=== PATIENT | male | born 2000 ===

== ENCOUNTER 2024-12-21 11:09 | Emergency (ER) | payer MEDICAID, SELFPAY ==
[2024-12-21 11:42] VITALS: BP 116/56; PULSE 70; RESP 16; TEMP 36.8; O2SAT 99; BMI 22.7
--- NOTE | 2024-12-21 11:42 | ED_ITS ---
HPI - Ear Problem General Chief complaint: Ear Problems Stated complaint: r ear issue Time Seen by Provider: 12/21/24 13:27 Source: patient and old records reviewed Mode of arrival: ambulatory Limitations: no limitations History of Present Illness ED Provider: NICKI RITCHIE Narrative: 24 yo male with no sig PMH here c/o ear fullness and pain with decreased hearing for a few days. He denies trauma, he has no URI symptoms. MD Complaint: ear pain Location: right ear Duration: constant Severity: moderate Relieving factors: nothing Exacerbating factors: position of head and palpation Discharge from ear: no Associated symptoms ear: decreased hearing Treatment prior to arrival: attempt at ear wax removal Related Data Previous Rx's ?Medication ?Instructions ?Recorded ofloxacin 0.3 % ear drops 10 drp otic (ears) DAILY 7 d ays #5 12/21/24 mL Allergies Allergy/AdvReac Type Severity Reaction Status Date / Time No Known Allergies Allergy Verified 12/21/24 11:44 Review of Systems Review of Systems: Constitutional : No Fever, No Chills, No Fatigue ENT/Mouth : No sore throat, No Rhinorrhea Eyes: No Eye Pain, No Swelling, No Redness, pos ear pain Cardiovascular : No Chest Pain, No SOB, No Dyspnea on Exertion Respiratory : No Cough, No Sputum Gastrointestinal : No Nausea, No Vomiting Skin : No Skin Lesions, No rash Neuro : No Weakness, No Numbness All other systems reviewed and are negative [facility] Past Medical History Attestation statement: The following information was validated with the patient. Source: old records reviewed Medical History No pertinent past medical history Social History Social History (Updated 12/21/24 @ 14:06 by Shanna Vega DO) Unable to assess alcohol history related to: Unknown Patient Tobacco Use Status: Never used Tobacco Physical Exam Vital Signs: Vital Signs: Last Vital Signs Temp 98.3 F 12/21/24 11:42 Pulse 70 12/21/24 11:42 Resp 16 12/21/24 11:42 BP 116/56 L 12/21/24 11:42 Pulse Ox 99 12/21/24 11:42 O2 Del Method Room Air 12/21/24 11:42 BMI result Body Mass Index 22.7 Appearance: Alert. Oriented X3. No acute distress. Eyes: Pupils equal, round and reactive to light. ENT: Pharynx normal. Bilateral cerumen impaction Neck: Normal inspection. Neck supple. CVS: Normal heart rate and rhythm. Pulses normal. Respiratory: No respiratory distress. Breath sounds normal. Abdomen: Soft and nontender. Skin: Skin warm and dry. Normal skin color. Normal skin turgor. Extremities: No lower extremity edema. Neuro: Oriented X 3. No motor deficit. No sensory deficit. Course Course Course Narrative: This is an RME: Additional HPI, ROS, PE not included below will be deferred to primary provider. RME assessment and note performed by: Delphine Garland PA-C This is a [id number] who presents to the ER with complaints of right ear pain. States that about a week ago he used a Q-tip, noticed pain however states that he used a Q-tip against several days ago and noticed increased pain. He states he is unable to hear out of his right ear. Right ear with cerumen impac tion noted, left ear canal with cerumen impaction also noted. Plan: Irrigation Medications Administered Discontinued Medications Generic Name Dose Route Start Last Admin Trade Name Freq PRN Reason Stop Dose Admin Docusate Sodium 100 mg 12/21/24 13:11 12/21/24 13:46 Docusate Sodium 100 Mg/10 Ml Liquid PO 12/21/24 13:12 100 mg ONCE ONE Administration Procedures Procedure Narrative Procedure Narrative: bilateral ears cerumen impaction using irrigation tolerated well post irrigation erythema of the canals, TM intact and normal Medical Decision Making Medical Decision Making MDM Narrative: 24 yo male here with c/o bilateral cerumen impaction will apply colace then irrigate and recheck AOM Differential Diagnosis Differential Diagnoses: The differential diagnosis associated with the presentation includes cerumen impaction, AOM External Record Review External record reviewed: Outpatient record Prescription Management I considered prescription management with: Antibiotic and Other Discharge Plan Discharge Clinical Impression: Bilateral impacted cerumen Patient Disposition: Home, Self-Care Additional Instructions: have rears rechecked in 1 week return for any worsening symptoms or concerns avoid water in ears for 7 days Prescriptions: New ofloxacin 0.3 % drops 10 drp otic (ears) DAILY 7 Days Qty: 5 0RF Print Language: Icelandic
[2024-12-21 14:48] VITALS: BP 116/56; PULSE 70; RESP 16; TEMP 36.8; O2SAT 99
== END 2024-12-21 14:49 | disposition home or self-care (01) ==
PROVIDERS: Emergency Provider Emergency Medicine
DX: H61.23 Impacted cerumen, bilateral (principal); H92.09 Otalgia, unspecified ear
CPT/HCPCS: 99283; 99284